=== PATIENT | female | born 1995 | race Caucasian/White ===

== ENCOUNTER 2023-10-06 12:08 | Emergency (ER) | payer OTHER, SELFPAY ==
[2023-10-06 12:11] VITALS: BP 121/76; PULSE 82; RESP 20; TEMP 36.6; O2SAT 100
--- NOTE | 2023-10-06 12:52 | ED.EYEPROB ---
HPI - Eye Problem General Chief complaint: Eye Problems Stated complaint: eye Time Seen by Provider: 10/06/23 12:41 History of Present Illness HPI Narrative: Patient noticed that about 2 weeks ago her right eye was crusty and red, and irritated with some discharge. She started using [id number] Clear eyes and other drops that found that it seemed to be making things worse, so she stopped. She finally went to an urgent care where they prescribed her an antibiotic drop, but her eye became more red and irritated after that so she stopped using it. Her eye is still slightly red today but overall it is much better than was before not much drainage now. She has been using artificial tears. Related Data Allergies Allergy/AdvReac Type Severity Reaction Status Date / Time No Known Allergies Allergy Verified 10/06/23 12:14 Review of Systems Review of Systems: CONST: No fever. HEENT: red eye right side M/S: No joint pain. SKIN: No rash. NEURO: [No headache or focal numbness or weakness] Exam Narrative: EXAMINATION OF ORGAN SYSTEMS/BODY AREAS: Constitutional: Vital signs per nursing GENERAL:[No acute distress, non-toxic appearing.] HEAD: Normal with no signs of head trauma. EYES: EOMI, injected right eye, no significant discharge, no eyelid swelling. Normal visual acuity. PERRL. ENT: Hearing grossly intact LUNGS: Nonlabored breathing. HEART: [Regular rate and rhythm] ABD: [Soft], [nontender to palpation] EXT: Normal range of motion SKIN: [No rashes or lesions.] NEURO: [Alert and oriented x 3. No gross focal sensory or strength deficits.] PSYCH: Normal affect Course Vital Signs Vital signs: Vital Signs Temperature 97.9 F 10/06/23 12:11 Pulse Rate 82 10/06/23 12:11 Respiratory Rate 20 10/06/23 12:11 Blood Pressure 121/76 10/06/23 12:11 Pulse Oximetry 100 10/06/23 12:11 Oxygen Delivery Room Air 10/06/23 12:11 Temperature 97.9 F 10/06/23 12:11 Pulse Rate 82 10/06/23 12:11 Respiratory Rate 20 10/06/23 12:11 Blood Pressure 121/76 10/06/23 12:11 Pulse Oximetry 100 10/06/23 12:11 Oxygen Delivery Room Air 10/06/23 12:11 MDM - Eye Problem MDM Narrative Medical decision making narrative: patient presenting with red eye ongoing for last 2 weeks, initially was crusty and comfortable and now has been improving. And on exam she does have a red eye without crusting, but otherwise normal visual acuity. I suspect likely conjunctivitis versus also consider possible autoimmune disorders such as iritis or uveitis or scleritis, however I doubt any life-threatening emergency as she has no pain at this time and no visual acuity issues, I urged her to follow-up with ophthalmology in the next 1-2 days, and will switch her to erythromycin ointment, I have warned her to stop using other [id number] eyedrops unless they are just artificial tears. Patient agrees to this and I have let her know to return for any new or concerning symptoms such as changes in vision or pain. Discharge Plan Discharge Clinical Impression: Bacterial conjunctivitis Patient Disposition: Home, Self-Care Condition: Stable Instructions: Antibiotic Form, Conjunctivitis (ED) Additional Instructions: Please to not put anything else into your eyes other than lubrication drops, use the eye ointment as prescribed, and follow up with the eye doctor. Come back to the ER if you notice any vision loss or changes or eye pain. Prescriptions: New erythromycin 5 mg/gram (0.5 %) ointment 1 applic RIGHT EYE Q4H 7 Days Qty: 3.5 0RF Follow-up/Referrals: PHYSICIAN NOT ON STAFF,NONSTAFF [Non-Staff] - Unwin,Babak Olson MD [Non-Staff] - 2 Days
== END 2023-10-06 13:10 | disposition home or self-care (01) ==
LOC: ANHED 12:50
PROVIDERS: Emergency Provider Emergency Medicine
DX: H10.89 Other conjunctivitis (principal)
CPT/HCPCS: 99283